=== PATIENT | female | born 1960 | race Caucasian/White ===

== ENCOUNTER → 2017-05-09 | Outpatient (CLI) | payer BC | END | disposition home or self-care (01) | LOC: HKI 10:54 | DX: M16.0 Bilateral primary osteoarthritis of hip (principal); I10 Essential (primary) hypertension; E11.9 Type 2 diabetes mellitus without complications | CPT/HCPCS: 73523 ==

== ENCOUNTER 2017-05-23 06:54 | Inpatient (IN) | payer BC ==
[2017-05-23] MEDS ORDERED: CEFAZOLIN 1 GM INJ ×2 (07:00→13:34)
[2017-05-23] MEDS ORDERED: CEFAZOLIN 2 GM/50 ML (PMX) 50 ML IVPB (10:00)
[2017-05-23] MEDS ORDERED: MIDAZOLAM 1 MG/ML 2 ML INJ ×2 (11:11→13:38)
[2017-05-23] MEDS ORDERED: morphine SULFATE/PF (10 MG/10 ML) INJ (11:11)
[2017-05-23] MEDS ORDERED: PHENYLephrine (100 MCG/ML) 5ML SYG ×3 (11:26→12:09)
[2017-05-23] MEDS: BACITRACIN 50000 UNITS INJ (12:20)
[2017-05-23] MEDS: HIP PAIN COCKTAIL (CEFUROXIME) INJ (12:21)
[2017-05-23] MEDS: VANCOMYCIN 1 GM INJ (12:22)
[2017-05-23] MEDS: POLYMYXIN B 500000 UNIT INJ (12:24)
[2017-05-23] MEDS: TRANEXAMIC ACID 1,000 MG in DEXTROSE 5% 100 ML IV ×2 (12:53→13:10)
[2017-05-23] MEDS ORDERED: ONDANSETRON 4 MG INJ (13:34)
[2017-05-23] MEDS ORDERED: PROPOFOL 20 ML (13:34)
[2017-05-23] MEDS ORDERED: ROCURONIUM 50 MG INJ (13:34)
[2017-05-23] MEDS ORDERED: METOCLOPRAMIDE 10 MG INJ (13:34)
[2017-05-23] MEDS ORDERED: LIDOCAINE 2% (SDV) 5 ML INJ (13:34)
[2017-05-23] MEDS ORDERED: MEPERIDINE 25 MG INJ (13:49)
[2017-05-23] MEDS ORDERED: HYDROmorphONE (0.2 MG/ML) 10ML SYG IV ×2 (14:00)
[2017-05-23] MEDS ORDERED: DIPHENHYDRAMINE 50 MG INJ IM (14:00)
[2017-05-23] MEDS ORDERED: BISACODYL 10 MG SUPP PR (14:00)
[2017-05-23] MEDS ORDERED: oxyCODONE 5 MG TAB PO (14:00)
[2017-05-23] MEDS ORDERED: NACL 0.9% 3 ML SYG IV (14:00)
[2017-05-23] MEDS ORDERED: NA PHOSPHATE/BIPHOS 133 ML ENEMA PR (14:00)
[2017-05-23] MEDS ORDERED: SENNA/DOCUSATE NA (8.6MG/50MG) TAB PO (14:00)
[2017-05-23] MEDS ORDERED: ZOLPIDEM 5 MG TAB PO (14:00)
[2017-05-23] MEDS ORDERED: BETHANECHOL 25 MG TAB PO (14:00)
[2017-05-23] MEDS ORDERED: ONDANSETRON 4 MG INJ IV (14:00)
[2017-05-23] MEDS ORDERED: DIPHENHYDRAMINE 50 MG INJ IV (14:00)
[2017-05-23] MEDS ORDERED: NALOXONE (0.4 MG/ML) INJ IV ×2 (14:00)
[2017-05-23] MEDS ORDERED: FENTAnyl 50 MCG/ML VIAL IV (14:00)
[2017-05-23] MEDS ORDERED: MAGNESIUM HYDROXIDE 30ML CUP PO (14:00)
[2017-05-23] MEDS: MEPERIDINE 25 MG INJ IV (14:06)
[2017-05-23] MEDS: ONDANSETRON 4 MG INJ IV ×2 (14:06→17:25)
[2017-05-23] MEDS: SOD CHLORIDE 0.9% 1,000 ML IV ×2 (14:07→22:07)
[2017-05-23] MEDS: ASPIRIN (EC) 325 MG TAB PO ×2 (14:09→22:02)
[2017-05-23] MEDS: CEFAZOLIN 1 GM/50 ML (PMX) 50 ML IVPB ×2 (14:09→22:02)
[2017-05-23] MEDS: DOCUSATE SODIUM 100 MG CAP PO (14:10)
[2017-05-23] MEDS: oxyCODONE 5 MG TAB PO (17:09)
[2017-05-24] MEDS: ONDANSETRON 4 MG INJ IV ×2 (01:44→08:54)
[2017-05-24] MEDS: oxyCODONE 5 MG TAB PO ×6 (01:44→21:36)
[2017-05-24] MEDS: PANTOPRAZOLE (EC) 40 MG TAB PO (05:30)
[2017-05-24] MEDS: CEFAZOLIN 1 GM/50 ML (PMX) 50 ML IVPB (05:31)
[2017-05-24 05:48] LABS: ADD MAN DIFF? NO
[2017-05-24 05:55] LABS: BASOPHILS % 0.3 % (0.0-2.0); EOSINOPHILS # 0.1 10^3/ul (0.0-0.5); EOSINOPHILS % 0.9 % (0.0-7.0); HEMATOCRIT 34.9 % (37.0-47.0); HEMOGLOBIN 11.7 g/dl (12.0-16.0); LYMPHOCYTES # 1.7 10^3/ul (0.8-2.9); LYMPHOCYTES % 18.3 % (15.0-51.0); MEAN CORPUSCULAR HEMOGLOBIN 30.8 pg (29.0-33.0); MEAN CORPUSCULAR HGB CONC 33.5 g/dl (32.0-37.0); MEAN CORPUSCULAR VOLUME 91.8 fl (82.0-101.0); MEAN PLATELET VOLUME 9.7 fl (7.4-10.4); MONOCYTE # 0.6 10^3/ul (0.3-0.9); MONOCYTES % 7.1 % (0.0-11.0); NEUTROPHIL # 6.6 10^3/ul (1.6-7.5); NEUTROPHILS % 73.2 % (39.0-77.0); PLATELET COUNT 299 10^3/UL (140-415); RED CELL DISTRIBUTION WIDTH 13.1 % (11.5-14.5)
[2017-05-24 05:59] LABS: ADD UMIC YES; UR ASCORBIC ACID NEGATIVE (NEGATIVE); UR BILIRUBIN (Dip) NEGATIVE (NEGATIVE); UR BLOOD (Dip) 1+ mg/dL (NEGATIVE); UR CLARITY CLEAR (CLEAR); UR COLOR YELLOW (YELLOW); UR GLUCOSE (Dip) NEGATIVE (NEGATIVE); UR KETONES (Dip) NEGATIVE (NEGATIVE); UR LEUKOCYTE ESTERASE (Dip) NEGATIVE Leu/ul (NEGATIVE); UR MUCUS FEW /HPF (NONE SEEN); UR NITRITE (Dip) NEGATIVE (NEGATIVE); UR RBC 8 /HPF (0-5); UR TOTAL PROTEIN (Dip) 1+ mg/dl (NEGATIVE); UR UROBILINOGEN (Dip) NEGATIVE (NEGATIVE); UR WBC 2 /HPF (0-5)
[2017-05-24 06:23] LABS: ANION GAP 11 (8-16); BLOOD UREA NITROGEN 15 mg/dl (7-20); CALCIUM 8.7 mg/dl (8.4-10.2); CARBON DIOXIDE 26 mmol/L (21-31); CHLORIDE 107 mmol/L (97-110); CREATININE 0.72 mg/dl (0.44-1.00); GLUCOSE 100 mg/dl (70-220); POTASSIUM 3.9 mmol/L (3.5-5.1); SODIUM 140 mmol/L (135-144)
[2017-05-24] MEDS: FERROUS FUMARATE (SR) TAB PO ×2 (08:56→21:00)
[2017-05-24] MEDS: CELECOXIB 200 MG CAP PO ×2 (08:56→21:01)
[2017-05-24] MEDS: ASPIRIN (EC) 325 MG TAB PO ×2 (08:57→21:00)
[2017-05-24] MEDS: DOCUSATE SODIUM 100 MG CAP PO ×2 (08:57→21:00)
[2017-05-24] MEDS: SOD CHLORIDE 0.9% 1,000 ML IV (11:49)
[2017-05-24] MEDS: METOCLOPRAMIDE 10 MG INJ IV ×2 (13:50→21:00)
[2017-05-25] MEDS: SOD CHLORIDE 0.9% 1,000 ML IV ×2 (03:09→15:21)
[2017-05-25 04:58] LABS: ADD MAN DIFF? NO
[2017-05-25 05:05] LABS: BASOPHILS % 0.4 % (0.0-2.0); EOSINOPHILS # 0.1 10^3/ul (0.0-0.5); EOSINOPHILS % 1.6 % (0.0-7.0); HEMATOCRIT 32.6 % (37.0-47.0); HEMOGLOBIN 11.1 g/dl (12.0-16.0); LYMPHOCYTES # 1.6 10^3/ul (0.8-2.9); LYMPHOCYTES % 19.6 % (15.0-51.0); MEAN CORPUSCULAR VOLUME 91.1 fl (82.0-101.0); MEAN PLATELET VOLUME 9.9 fl (7.4-10.4); MONOCYTE # 0.7 10^3/ul (0.3-0.9); MONOCYTES % 8.7 % (0.0-11.0); NEUTROPHIL # 5.5 10^3/ul (1.6-7.5); NEUTROPHILS % 69.4 % (39.0-77.0); PLATELET COUNT 263 10^3/UL (140-415); RED BLOOD COUNT 3.58 10^6/ul (4.20-5.40); RED CELL DISTRIBUTION WIDTH 12.9 % (11.5-14.5)
[2017-05-25 05:26] LABS: ANION GAP 11 (8-16); BLOOD UREA NITROGEN 8 mg/dl (7-20); CALCIUM 8.7 mg/dl (8.4-10.2); CARBON DIOXIDE 25 mmol/L (21-31); CHLORIDE 107 mmol/L (97-110); CREATININE 0.59 mg/dl (0.44-1.00); GLUCOSE 108 mg/dl (70-220); POTASSIUM 3.6 mmol/L (3.5-5.1); SODIUM 139 mmol/L (135-144)
[2017-05-25] MEDS: PANTOPRAZOLE (EC) 40 MG TAB PO (06:04)
[2017-05-25] MEDS: oxyCODONE 5 MG TAB PO ×3 (06:09→14:26)
[2017-05-25] MEDS: DOCUSATE SODIUM 100 MG CAP PO (08:50)
[2017-05-25] MEDS: CELECOXIB 200 MG CAP PO (08:50)
[2017-05-25] MEDS: FERROUS FUMARATE (SR) TAB PO (08:51)
[2017-05-25] MEDS: ASPIRIN (EC) 325 MG TAB PO (08:51)
[2017-05-25] MEDS: METOCLOPRAMIDE 10 MG INJ IV (08:59)
== END 2017-05-25 16:59 | disposition home health service (06) | DRG 470 ==
LOC: REC 06:54 → MS1 05-24 18:31 → REC 07:25 → MS1 15:20
PROC: 0SR904Z Replacement of Right Hip Joint with Ceramic on Polyethylene Synthetic Substitute, Open Approach (ICD-10-PCS; principal; 2017-05-23 11:00)
DX: M16.11 Unilateral primary osteoarthritis, right hip (principal); Z68.41 Body mass index [BMI] 40.0-44.9, adult; E66.01 Morbid (severe) obesity due to excess calories
CPT/HCPCS: 73500; 73530; 80048; 81001; 84703; 85025; 86850; 86900; 86901; 87086; 97116; 97163; 97166; 97530; 97535

== ENCOUNTER → 2017-06-13 | Outpatient (CLI) | payer BC | END | disposition home or self-care (01) | LOC: HKI 08:51 | DX: Z47.1 Aftercare following joint replacement surgery (principal); Z96.641 Presence of right artificial hip joint; M16.11 Unilateral primary osteoarthritis, right hip ==

== ENCOUNTER → 2017-07-11 | Outpatient (CLI) | payer BC | END | disposition home or self-care (01) | LOC: HKI 10:10 | DX: Z09 Encounter for follow-up examination after completed treatment for conditions other than malignant neoplasm (principal); Z96.642 Presence of left artificial hip joint | CPT/HCPCS: 73502 ==